=== PATIENT | male | born 1980 | race Caucasian/White ===

== ENCOUNTER 2023-08-25 19:02 | Inpatient (IN) | payer OTHER ==
[2023-08-25 19:08] VITALS: TEMP 99.3; BMI 30.1
[2023-08-25] MEDS: SODIUM CHLORIDE 0.9% 1000 ML INFUS.BAG IV ONE (19:56)
[2023-08-25 19:59] LABS: HEMOGLOBIN 15.3 GM/dL (11.7-16.9); MCHC 33.9 g/dl (32.0-35.9); MEAN CELL VOLUME 88.5 fl (80-96); MEAN PLT VOLUME 10.5 fl (7.5-11.1); PLATELET COUNT 174 10^3/uL (134-434); RBC 5.08 M/mm3 (4.00-5.60); RDW 13.6 % (11.9-15.9); WHITE BLOOD COUNT 8.2 K/mm3 (4.0-10.0)
[2023-08-25] MEDS ORDERED: ASPIRIN 325 MG TABLET ONE (20:15)
[2023-08-25 20:29] LABS: POTASSIUM 4.2 mmol/L (3.5-5.1)
[2023-08-25 20:30] LABS: ALBUMIN 3.4 g/dl (3.4-5.0); CALCIUM 8.8 mg/dL (8.5-10.1)
[2023-08-25] MEDS: ASPIRIN 325 MG TABLET PO ONE (20:30)
[2023-08-25 20:31] LABS: BLOOD UREA NITROGEN 11.4 mg/dL (7-18)
[2023-08-25 20:34] LABS: CREATININE 1.3 mg/dL (0.55-1.3)
[2023-08-25 20:35] LABS: BILIRUBIN,TOTAL 0.5 mg/dL (0.2-1)
[2023-08-25 20:53] LABS: INR 1.17 (0.83-1.09); PROTHROMBIN TIME (PATIENT) 13.6 SEC (9.7-13.0)
[2023-08-25 21:26] LABS: ACTIVATED PTT 35.6 SECONDS (25.2-36.5)
[2023-08-25] MEDS ORDERED: ONDANSETRON 4 MG/2 ML VIAL ONE (21:34)
[2023-08-25 21:54] LABS: ERYTHROCYTE SEDIMENTATION RATE 13 mm/hr (0-10)
[2023-08-25] MEDS ORDERED: HEPARIN NA (PORCINE) 5,000 UNITS/ML 1ML VIAL IVPUSH PRN ×2 (22:12)
[2023-08-25] MEDS ORDERED: HEPARIN NA (PORCINE) 5,000 UNITS/ML 1ML VIAL ONE (22:40)
[2023-08-25] MEDS: HEPARIN INFUSION - 25,000 UNITS/500 ML INFUS.BAG IVPB SCH ×2 (22:55→22:56)
[2023-08-25] MEDS: HEPARIN NA (PORCINE) 5,000 UNITS/ML 1ML VIAL IVPUSH ONE (22:56)
[2023-08-25] MEDS: ONDANSETRON 4 MG/2 ML VIAL IVPUSH ONE (23:07)
[2023-08-26] MEDS: APIXABAN 5 MG TABLET PO ONE (01:45)
[2023-08-26 02:04] VITALS: BP 130/85; PULSE 88; RESP 16
== END 2023-08-26 03:13 | disposition home or self-care (01) | DRG 134 ==
LOC: JER 19:02 → JERBED 22:16
PROVIDERS: ADMIT Internal Medicine; ATTEND Internal Medicine
DX: I26.99 Other pulmonary embolism without acute cor pulmonale (principal); R07.9 Chest pain, unspecified
CPT/HCPCS: 0241U-QW; 36415; 71045-TC-FY; 71275-TC; 80053; 81240; 81241; 84484; 85027; 85300; 85379; 85610; 85651; 85730; 86140; 93005; 93010; 99291; J1644; Q9967

== ENCOUNTER 2023-08-26 14:24 | Emergency (ER) | payer OTHER ==
[2023-08-26 14:32] VITALS: TEMP 98.9; BMI 30.1
[2023-08-26] MEDS ORDERED: ACETAMINOPHEN INJECTION 100 ML IVPB ONE (16:08)
[2023-08-26] MEDS ORDERED: traMADol HCL 50 MG TABLET ONE (16:08)
[2023-08-26 16:12] LABS: BASO % 0.4 % (0-2.0); EOS % 0.8 % (0-4.5); HEMATOCRIT 45.8 % (35.4-49); HEMOGLOBIN 15.2 GM/dL (11.7-16.9); MCHC 33.2 g/dl (32.0-35.9); MEAN CELL VOLUME 90.6 fl (80-96); MEAN PLT VOLUME 10.7 fl (7.5-11.1); MONO % 17.3 % (3.8-10.2); NEUT % 67.5 % (42.8-82.8); PLATELET COUNT 190 10^3/uL (134-434); RBC 5.05 M/mm3 (4.00-5.60); RDW 13.5 % (11.9-15.9); WHITE BLOOD COUNT 10.6 K/mm3 (4.0-10.0)
[2023-08-26] MEDS: traMADol HCL 50 MG TABLET PO ONE (16:14)
[2023-08-26] MEDS: ACETAMINOPHEN 1000 MG/100 ML BAG IVPB ONE (16:14)
[2023-08-26 16:16] LABS: INR 1.86 (0.83-1.09); PROTHROMBIN TIME (PATIENT) 21.5 SEC (9.7-13.0)
[2023-08-26 16:35] LABS: CHLORIDE 104 mmol/L (98-107); SODIUM 135 mmol/L (136-145)
[2023-08-26 16:38] LABS: CALCIUM 8.8 mg/dL (8.5-10.1); GLUCOSE,RANDOM 88 mg/dL (74-106)
[2023-08-26 16:39] LABS: ALBUMIN 3.2 g/dl (3.4-5.0); BLOOD UREA NITROGEN 10.5 mg/dL (7-18); CO2 27 mmol/L (21-32); MAGNESIUM 2.5 mg/dL (1.8-2.4)
[2023-08-26 16:43] LABS: CREATININE 1.3 mg/dL (0.55-1.3); SGOT/AST 90 U/L (15-37)
[2023-08-26 16:44] LABS: ALK PHOS 81 U/L (45-117); BILIRUBIN,TOTAL 0.5 mg/dL (0.2-1); TOT PROT 7.6 g/dl (6.4-8.2)
[2023-08-26 16:52] LABS: ANION GAP 4 mmol/L (4-13); POTASSIUM 6.6 mmol/L (3.5-5.1); SGPT/ALT 38 U/L (13-61)
[2023-08-26 19:11] VITALS: BP 108/64; PULSE 89; RESP 18
== END 2023-08-26 20:10 | disposition home or self-care (01) ==
LOC: JER 14:24
PROC: 3E030NZ Introduction of Analgesics, Hypnotics, Sedatives into Peripheral Vein, Open Approach (ICD-10-PCS; principal; 2023-08-26)
DX: I26.93 Single subsegmental thrombotic pulmonary embolism without acute cor pulmonale (principal); R07.81 Pleurodynia; R06.02 Shortness of breath
CPT/HCPCS: 36415; 71045-TC-FY; 80053; 83735; 84484; 85025; 85610; 85730; 99285-25; J0131